=== PATIENT | female | born 2000 | race Caucasian/White ===

== ENCOUNTER 2019-10-10 06:16 | Emergency (ER) | payer SELFPAY ==
[~2019-10-10] VITALS: Ht 167.6 cm; Wt 104.3 kg
[~2019-10-10 06:16] MED LIST: CEPHALEXIN500 MG PO; IBUPROFEN200 M1; MIDOL220 MG; NORCO 5-325 TA1 EACH PO; PROAIR HFA8.5 GM; PYRIDIUM200 MG PO; TYLENOL325 M1
[2019-10-10] MEDS ORDERED: DOXYCYCLINE HY100 MG PO (06:36)
[2019-10-10] MEDS ORDERED: CEPHALEXIN500 MG PO (06:36)
== END 2019-10-10 06:45 | disposition home or self-care (01) ==
LOC: ED 06:16
DX: N73.2 Unspecified parametritis and pelvic cellulitis (principal); F17.200 Nicotine dependence, unspecified, uncomplicated; Z88.2 Allergy status to sulfonamides; Z88.1 Allergy status to other antibiotic agents
CPT/HCPCS: 99283; A9270

== ENCOUNTER 2020-05-17 06:35 | Emergency (ER) | payer BC ==
[~2020-05-17] VITALS: Ht 167.6 cm; Wt 122.5 kg
[~2020-05-17 06:35] MED LIST changes: +DOXYCYCLINE HY100 MG PO
--- NOTE | 2020-05-17 21:30 | PATH ---
[facility] [address], [place] [address] Signed ORDERING PHYSICIAN: Erich Soler MD PATIENT NAME: JAYLA CERRATO GENDER: F : 2000 Prior History: No cases found. SPECIMEN(S): MOLECULAR PATHOLOGY RESULTS: SARS-CoV-2 Not Detected ADDITIONAL NOTES.: The Ladora Fusion SARS-CoV-2 Assay is a multiplex real-time PCR (RT-PCR) in vitro diagnostic test intended for the qualitative detection of RNA from SARS-CoV-2 from individuals who meet COVID-19 clinical and/or epidemiological criteria. In general, SARS-CoV-2 RNA can be detected during the acute phase of infection. Positive results indicate the presence of SARS-CoV-2 RNA. Clinical correlation with patient history and other diagnostic information is necessary to determine patient infection status. Positive results do not rule out bacterial infection or co-infection with other viruses. Negative results do not preclude SARS-CoV-2 infection and should not be used as the sole basis for patient management decisions. Negative results must be combined with other clinical observations, patient history, and epidemiological information. The Ladora Fusion SARS-CoV-2 Assay is not yet approved or cleared by the [place] FDA. When there are no FDA-approved or cleared tests available, and other criteria are met, FDA can make tests available under an emergency access mechanism called an Emergency Use Authorization (EUA). The EUA for this test is supported by the Basket Person of Health and Human Service's (HHS's) declaration that circumstances exist to justify the emergency use of in vitro diagnostics for the detection and/or diagnosis of the virus that causes COVID-19. This EUA will remain in effect for the duration of the COVID-19 declaration justifying emergency of IVDs, unless it is terminated or revoked by FDA, after which the test may no longer be used. The Ladora Fusion SARS-CoV-2 Assay is for use only under EUA PATIENT NAME: JAYLA CERRATO PATHOLOGY DATE OF : [birth year] REPORT #: [id number] PHYSICIAN: GILDARDO LOPEZ PCP: AMERICO AGUSTIN PA-C REPORT IS CONFIDENTIAL AND NOT TO BE RELEASED WITHOUT AUTHORIZATION [facility] [address] [place] [address] [place], [place] [address] Signed in [place] laboratories certified under the Clinical Laboratory Improvement Amendments of 1988 (CLIA) to perform high complexity tests. [facility] is certified under CLIA to perform high complexity clinical laboratory testing. PERFORMING LABORATORY.: Molecular testing was performed by [facility] [place] [address] (Visual Effects Artist: Sam Chand D.O.; CLIA#: [id number]) Diagnostician: System Interface Pathologist Electronically Signed 05/17/2020 Copies: ~ PATIENT NAME: JAYLA CERRATOLEELEE MCCORMACK PATHOLOGY DATE OF : [birth year] REPORT #: [id number] PHYSICIAN: GILDARDO LOPEZ PCP: AMERICO AGUSTIN PA-C REPORT IS CONFIDENTIAL AND NOT TO BE RELEASED WITHOUT AUTHORIZATION
== END 2020-05-17 08:38 | disposition home or self-care (01) ==
LOC: ED 06:35
DX: R06.02 Shortness of breath (principal); R05 Cough; J02.9 Acute pharyngitis, unspecified; Z20.828 Contact with and (suspected) exposure to other viral communicable diseases; F17.200 Nicotine dependence, unspecified, uncomplicated; Z88.2 Allergy status to sulfonamides; Z88.1 Allergy status to other antibiotic agents
CPT/HCPCS: 71045; 99285-25

== ENCOUNTER 2022-06-04 02:18 | Emergency (ER) | payer BC ==
[~2022-06-04] VITALS: Ht 167.6 cm; Wt 122.5 kg
--- OUTSIDE RECORDS SUMMARY | 2022-06-04 02:21 | XMS ---
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 EKalia VISIT COUNT (12 MO.) 1 [facility] Dash TOTAL 1 NOTE: Visits indicate total known visits. ED/UCC VISIT TRACKING (12 MO.) 06/04/2022 02:18 [facility] [place] TYPE: Emergency COMPLAINT: - FALL FOOT INJ INPATIENT VISIT TRACKING (12 MO.) No inpatient visits to display in this time frame [id number]
[2022-06-04] MEDS ORDERED: AMBIEN CR6.25 MG PO (02:28)
[2022-06-04] MEDS ORDERED: AMBIEN5 MG PO (02:28)
[2022-06-04] MEDS ORDERED: LITHIUM CARBON300 MG PO (02:29)
[2022-06-04] MEDS ORDERED: LAMICTAL XR50 MG PO (02:29)
[2022-06-04] MEDS ORDERED: LAMOTRIGINE100 MG PO (02:29)
[2022-06-04] MEDS ORDERED: CRUTCHES XX (03:02)
== END 2022-06-04 03:14 | disposition home or self-care (01) ==
LOC: ED 02:18
DX: S93.402A Sprain of unspecified ligament of left ankle, initial encounter (principal); S93.401A Sprain of unspecified ligament of right ankle, initial encounter; F17.200 Nicotine dependence, unspecified, uncomplicated; Z88.2 Allergy status to sulfonamides; Z88.1 Allergy status to other antibiotic agents; Z79.899 Other long term (current) drug therapy; X50.9XXA Other and unspecified overexertion or strenuous movements or postures, initial encounter
CPT/HCPCS: 73610; 73630; 99283-25

== ENCOUNTER 2022-06-11 06:38 | Emergency (ER) | payer BC ==
[~2022-06-11] VITALS: Ht 167.6 cm; Wt 122.5 kg
[~2022-06-11 06:38] MED LIST changes: +AMBIEN CR6.25 MG PO; +AMBIEN5 MG PO; +CRUTCHES XX; +LAMICTAL XR50 MG PO; +LAMOTRIGINE100 MG PO; +LITHIUM CARBON300 MG PO
--- OUTSIDE RECORDS SUMMARY | 2022-06-11 06:40 | XMS ---
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 E.Maxi VISIT COUNT (12 MO.) 2 [facility] TOTAL 2 NOTE: Visits indicate total known visits. ED/UCC VISIT TRACKING (12 MO.) 06/11/2022 06:38 [facility] [place] TYPE: Emergency COMPLAINT: - ANKLE PAIN 06/04/2022 02:18 [facility] [place] TYPE: Emergency COMPLAINT: - FALL FOOT INJ DIAGNOSES: - Pain in left ankle and joints of left foot - Sprain of unspecified ligament of right ankle, initial encounter - Allergy status to other antibiotic agents - Nicotine dependence, unspecified, uncomplicated - Sprain of unspecified ligament of left ankle, initial encounter - Allergy status to sulfonamides - Other and unspecified overexertion or strenuous movements or postures, initial encounter - 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
== END 2022-06-11 07:23 | disposition home or self-care (01) ==
LOC: ED 06:38
DX: S93.402A Sprain of unspecified ligament of left ankle, initial encounter (principal); S93.401A Sprain of unspecified ligament of right ankle, initial encounter; F17.200 Nicotine dependence, unspecified, uncomplicated; X50.9XXA Other and unspecified overexertion or strenuous movements or postures, initial encounter; Z88.2 Allergy status to sulfonamides; Z88.1 Allergy status to other antibiotic agents; Z79.899 Other long term (current) drug therapy
CPT/HCPCS: 99283

== ENCOUNTER 2022-06-27 06:34 | Emergency (ER) | payer BC ==
[~2022-06-27] VITALS: Ht 167.6 cm; Wt 122.5 kg
--- OUTSIDE RECORDS SUMMARY | 2022-06-27 06:36 | XMS ---
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 Terra VISIT COUNT (12 MO.) 3 [facility] TOTAL 3 NOTE: Visits indicate total known visits. ED/UCC VISIT TRACKING (12 MO.) 06/27/2022 06:35 [facility] [place] TYPE: Emergency COMPLAINT: - SKIN PROBLEM 06/11/2022 06:38 [facility] [place] TYPE: Emergency COMPLAINT: - ANKLE PAIN DIAGNOSES: - Nicotine dependence, unspecified, uncomplicated - Other and unspecified overexertion or strenuous movements or postures, initial encounter - Sprain of unspecified ligament of right ankle, initial encounter - Sprain of unspecified ligament of left ankle, initial encounter - Other intermediate (current) drug therapy - Allergy status to sulfonamides - Allergy status to other antibiotic agents 06/04/2022 02:18 [facility] [place] TYPE: Emergency COMPLAINT: - FALL FOOT INJ DIAGNOSES: - Sprain of unspecified ligament of left ankle, initial encounter - Allergy status to sulfonamides - Other and unspecified overexertion or strenuous movements or postures, initial encounter - 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
[2022-06-27] MEDS ORDERED: CLOTRIMAZOLE-BE15 GM TOP (06:52)
== END 2022-06-27 06:57 | disposition home or self-care (01) ==
LOC: ED 06:34
DX: R21 Rash and other nonspecific skin eruption (principal); F17.200 Nicotine dependence, unspecified, uncomplicated; Z88.2 Allergy status to sulfonamides; Z88.8 Allergy status to other drugs, medicaments and biological substances; Z79.899 Other long term (current) drug therapy
CPT/HCPCS: 99282

== ENCOUNTER 2023-06-28 08:49 | Day surgery (SDC) | payer BC ==
[~2023-06-28] VITALS: Ht 167.6 cm; Wt 145.4 kg
[~2023-06-28 08:49] MED LIST changes: +CLOTRIMAZOLE-BE15 GM TOP
[2023-06-28 09:05] VITALS: BP 141/81
[2023-06-28] MEDS ORDERED: LURASIDONE HCL40 MG PO (09:11)
[2023-06-28] MEDS ORDERED: FAMOTIDINE20 MG PO (09:13)
[2023-06-28] MEDS ORDERED: PANTOPRAZOLE SO20 MG PO (09:13)
--- NOTE | 2023-06-28 12:18 | NUR ---
06/28/23 1217 Oralia Ocasio PT TO PACU ALERT AND AWAKE DENIES PAIN AND NAUSEA.
[2023-06-28 12:30] VITALS: BP 108/71
--- NOTE | 2023-06-28 19:15 | OR ---
[facility] [address] [place], [place] [address] Signed DATE OF OPERATION: 06/28/2023 SURGEON: Luisana Way MD PREOPERATIVE DIAGNOSES: 1. Long-standing gastroesophageal reflux symptoms. 2. Morbid obesity (weight 320 pounds). POSTOPERATIVE DIAGNOSES: Poor flap valve and adenomatous appearing mucosal lesion of the GE junction. PROCEDURE: Esophagogastroduodenoscopy with biopsy. ANESTHESIA: Intravenous sedation; fentanyl 100 mcg, Versed 7 mg. INDICATION: This morbidly obese 320-pound white woman is a patient of LENNOX Macedo. She has had lifelong gastroesophageal reflux as far back as high school. She has taken PPI medication, which she thinks "does not help." She has no actual dysphagia or hematemesis. She has no family history of esophageal cancer. She is admitted to undergo upper endoscopy to better characterize her problem, understand the risk of bleeding, infection, and perforation. FINDINGS: There is a notable adenomatous appearing mucosal lesion of the GE junction. Multiple biopsies were obtained. The significance of the lesion is uncertain. There was no actual Jose's epithelium elsewhere. The flap valve was poor. The stomach itself as well as the duodenum was normal. CLOtest was negative. DESCRIPTION OF PROCEDURE: The patient was brought to the endoscopy suite and placed in the lateral decubitus position after undergoing topical lidocaine hypopharyngeal anesthesia. She was given intravenous sedation to the point of slurred speech and nystagmus and a bite block was placed. An Olympus video upper endoscope was passed in the hypopharynx. The vocal cords appeared normal. Scope was easily passed in the esophagus. Throughout its length, it was initially appeared as normal. The scope was passed into the stomach which was insufflated with air. Rugal folds were normal. Pylorus was normal. Scope was passed through into the duodenum, which was normal. Biopsies were taken there to assess for Electronically Signed By: LUISANA WAY MD 06/28/231914 PATIENT NAME: JAYLA CERRATO OPERATIVE REPORT DATE OF : [birth year] REPORT #: [id number] PHYSICIAN: LUISANA WAY MD PCP: AMERICO AGUSTIN PA-C REPORT IS CONFIDENTIAL AND NOT TO BE RELEASED WITHOUT AUTHORIZATION [facility] [address] [place], [place] [address] Signed celiac disease. The scope was withdrawn and biopsies taken of the antrum for both BREANA and pathologic testing. Retroflexed view was undertaken showing a poor flap valve, but no sign of large hiatal hernia proper. The scope was withdrawn to the GE junction and an obvious somewhat polypoid adenomatous appearing lesion was noted. This straddled the Z-line essentially. Multiple biopsies were taken of this to assure good tissue specimens. The scope was further withdrawn and the remaining esophagus was normal. Scope was removed and the patient was taken to the recovery room in good condition. CONCLUDING DIAGNOSIS: Lesion of the GE junction is somewhat bothersome. Multiple biopsies have been taken. Depending on those pathology reports, a plan of therapy would be outlined. In the meantime, would have her continue with PPI medication, Prilosec 20 mg p.o. daily. She will see us back in the office in [address] MD JM/MODL /[id number] cc: LENNOX Macedo Copies: ~ Electronically Signed By: LUISANA WAY MD 06/28/23 1915 PATIENT NAME: JAYLA CERRATO OPERATIVE REPORT DATE OF : [birth year] REPORT #: [id number] PHYSICIAN: LUISANA WAY MD PCP: AMERICO AGUSTIN PA-C REPORT IS CONFIDENTIAL AND NOT TO BE RELEASED WITHOUT AUTHORIZATION
--- NOTE | 2023-07-09 21:44 | PATH ---
[facility] [address] [place], [place] [address] Signed SPECIMEN(S): A DUODENAL BIOPSY SPECIMEN(S): B ANTRUM/PYLORUS BIOPSY SPECIMEN(S): C LOWER ESOPHAGEAL BIOPSY SPECIMEN SOURCE: A. DUODENAL BIOPSY B. ANTRUM/PYLORUS BIOPSY C. LOWER ESOPHAGEAL BIOPSY CLINICAL HISTORY: EGD. Reflux, upper abdominal pain FINAL PATHOLOGIC DIAGNOSIS: A. Duodenum, biopsy: - Features suggestive of celiac disease type Cleary I. B. Stomach, antrum/pylorus, biopsy: - No significant histopathologic alterations. C. Lower esophagus, biopsy: - Reflux esophagitis. - Acute and chronic carditis. - There is no evidence of Jose's esophagus. COMMENT: The sections through the duodenal biopsy show fragments of duodenal mucosa with normal appearing villi. There is no evidence of crypt hyperplasia. However, there is evidence of an intraepithelial lymphocytosis that measures greater than 40 intraepithelial lymphocytes per 100 enterocytes. The lamina propria contains an increase in the number of mononuclear cells particularly lymphocytes and plasma cells. These features are most commonly seen in individuals with celiac disease. If the serological findings are compatible with this diagnosis, the lesion would qualify as a Cleary I lesion. However, duodenal intraepithelial lymphocytosis can be seen in other settings including patient's with gastric Helicobacter infections, autoimmune diseases of the gastrointestinal tract, peptic duodenitis, infections, tropical sprue, and exposure to NSAIDs or other drugs. There is no evidence of neoplasia associated with these changes. There is no evidence of peptic duodenitis or microorganisms. Modified Cleary-Oberhuber Classification of Celiac Disease PATIENT NAME: JAYLA CERRATO PATHOLOGY DATE OF : [birth year] REPORT #: [id number] PHYSICIAN: GILDARDO LOPEZ PCP: AMERICO AGUSTIN PA-C REPORT IS CONFIDENTIAL AND NOT TO BE RELEASED WITHOUT AUTHORIZATION [facility] [address] [place], [place] [address] Signed Cleary Type IEL/100 enterocytes Crypts Villi Type 0 <30 Normal Normal Type I >30 Normal Normal Type II >30 Hyperplastic Normal Type IIIA >30 Hyperplastic Mild atrophy Type IIIB >30 Hyperplastic Marked atrophy Type IIIC >30 Hyperplastic Absent Type IV > 30 Hypoplastic Absent The sections through the gastric biopsies show fragments of histologically unremarkable antral mucosa. There is no evidence of acute or chronic inflammation. There is no evidence of H. pylori, intestinal metaplasia, abnormal infiltrates or neoplasia. The sections through the biopsy show a reactive squamous mucosa with rare eosinophils and an acute and chronically inflamed cardiac mucosa. There is no evidence of intestinal metaplasia. TWK MICROSCOPIC EXAMINATION: Histologic sections of all submitted blocks are examined by light microscopy. These findings, together with the gross examination, support the pathologic diagnosis. GROSS DESCRIPTION: A. The specimen, labeled and designated "Ericka, duodenum biopsy," is received in formalin and consists of one ray soft tissue fragment, 0.2 cm. Entirely submitted in (A1). B. The specimen, labeled and designated "Ericka, antrum biopsy," is received in formalin and consists of four ray soft tissue fragments, ranging from 0.1 cm. Entirely submitted in (B1). C. The specimen, labeled and designated "Eircka, lower esophagus biopsy," is received in formalin and consists of six ray soft tissue fragments, ranging from 0.1-0.7 cm. Entirely submitted in (C1). JS (under the direct supervision of a pathologist) The Gross Description was prepared using a voice recognition system. The report was reviewed for accuracy; however, sound-alike word errors, addition and/or deletions may occur. If there is any question about this report, please contact Client Services. ADDITIONAL NOTES: Immunohistochemical and/or in situ hybridization studies if performed in this PATIENT NAME: JAYLA CERRATO PATHOLOGY DATE OF : [birth year] REPORT #: [id number] PHYSICIAN: GILDARDO LOPEZ PCP: AMERICO AGUSTIN PA-C REPORT IS CONFIDENTIAL AND NOT TO BE RELEASED WITHOUT AUTHORIZATION [facility] [address] [place] [id number] Signed case included appropriate positive controls that reacted as expected. This test was developed and its performance characteristics determined by [facility]. It has not been cleared or approved by the U.S. Food and Drug Administration. The FDA has determined that such clearance or approval is not necessary. This test is used for clinical purposes. It should not be regarded as investigational or for research. [facility] is certified under the Clinical Laboratory Improvement Amendments of 1988 (CLIA) as qualified to perform high complexity clinical laboratory testing. PERFORMING LABORATORY: Technical component was performed by [facility], [address] [place] [id number] (CLIA# [id number]). Professional interpretation was performed by [facility], [address] [place] [address] (CLIA#:[id number]). Diagnostician: Tay Franco MD Pathologist Electronically Signed 07/09/2023 Copies: ~ PATIENT NAME: JAYLA CERRATO PATHOLOGY DATE OF : [birth year] REPORT #: [id number] PHYSICIAN: GILDARDO LOPEZ PCP: AMERICO AGUSTIN PA-C REPORT IS CONFIDENTIAL AND NOT TO BE RELEASED WITHOUT AUTHORIZATION
== END 2023-06-28 12:45 | disposition home or self-care (01) ==
LOC: OPS 08:49 → DS 08:54 → OPS 09:45 → DS 14:00 → OPS 14:00
PROVIDERS: ATTEND Surgery
PROC: 0DB68ZX Excision of Stomach, Via Natural or Artificial Opening Endoscopic, Diagnostic (ICD-10-PCS; 2023-06-28)
PROC: 0DB58ZX Excision of Esophagus, Via Natural or Artificial Opening Endoscopic, Diagnostic (ICD-10-PCS; 2023-06-28)
PROC: 0DB98ZX Excision of Duodenum, Via Natural or Artificial Opening Endoscopic, Diagnostic (ICD-10-PCS; principal; 2023-06-28 09:45)
DX: K21.00 Gastro-esophageal reflux disease with esophagitis, without bleeding (principal); E66.01 Morbid (severe) obesity due to excess calories; Z68.43 Body mass index [BMI] 50.0-59.9, adult; J45.909 Unspecified asthma, uncomplicated; G47.30 Sleep apnea, unspecified; F31.9 Bipolar disorder, unspecified; Z87.891 Personal history of nicotine dependence; Z88.1 Allergy status to other antibiotic agents; Z79.899 Other long term (current) drug therapy
CPT/HCPCS: 36415; 84703; 99153; G0500; J2250; J3010; J7121